=== PATIENT | male | born 1930 | race Caucasian/White ===

== ENCOUNTER 2016-08-18 13:19 | Emergency (ER) | payer OTHER ==
[~2016-08-18] VITALS: Ht 167.6 cm; Wt 96.2 kg
[~2016-08-18 13:19] MED LIST: KEFLEX500 MG PO
[2016-08-18] MEDS ORDERED: LIPITOR10 MG PO (14:37)
[2016-08-18] MEDS ORDERED: LISINOPRIL10 MG PO (14:37)
[2016-08-18] MEDS ORDERED: ASPIR 8181 MG PO (14:38)
[2016-08-18 15:08] LABS: ABSOLUTE NEUTROPHILS 3.4 thou/uL (1.4-8.2); BASOPHILS 0.3 % (0.0-2.0); EOSINOPHILS 0.7 % (0.0-3.0); HEMATOCRIT 42.7 % (42.0-52.0); HEMOGLOBIN 14.4 gm/dL (14.0-18.0); LYMPHOCYTES 24.8 % (24.0-44.0); MCHC 33.7 g/dL (28.0-37.0); MCV 94.9 fL (80.0-100.0); PLATELET COUNT 196 thou/uL (150-400); POLYS 62.2 % (36.0-66.0); RDW 14.3 % (10.5-14.5); WBC 5.5 thou/uL (4.0-11.0)
[2016-08-18 15:10] LABS: MANUAL DIFF NO
[2016-08-18 15:16] LABS: CALCIUM 9.3 mg/dL (8.5-10.1); POTASSIUM 4.2 mmol/L (3.5-5.1)
[2016-08-18] MEDS ORDERED: CLEOCIN HCL150 MG PO (16:11)
[2016-08-18] MEDS ORDERED: ULTRAM 50MG TAB50 MG PO (16:19)
[2016-08-18 17:00] VITALS: BP 117/63
== END 2016-08-18 17:00 | disposition home or self-care (01) ==
LOC: ER 13:19
PROVIDERS: Emergency Medicine
DX: L03.115 Cellulitis of right lower limb (principal); I10 Essential (primary) hypertension; M19.90 Unspecified osteoarthritis, unspecified site

== ENCOUNTER 2016-08-23 09:44 | Emergency (ER) | payer OTHER ==
[~2016-08-23] VITALS: Ht 167.6 cm; Wt 95.3 kg
[~2016-08-23 09:44] MED LIST changes: +ASPIR 8181 MG PO; +CLEOCIN HCL150 MG PO; +LIPITOR10 MG PO; +LISINOPRIL10 MG PO; +ULTRAM 50MG TAB50 MG PO
[2016-08-23 10:26] LABS: ABSOLUTE NEUTROPHILS 8.2 thou/uL (1.4-8.2); BASOPHILS 0.3 % (0.0-2.0); EOSINOPHILS 0.2 % (0.0-3.0); HEMATOCRIT 40.6 % (42.0-52.0); HEMOGLOBIN 13.6 gm/dL (14.0-18.0); LYMPHOCYTES 11.5 % (24.0-44.0); MCH 31.9 pg (26.0-34.0); MCHC 33.5 g/dL (28.0-37.0); MCV 95.5 fL (80.0-100.0); MONOCYTES 8.1 % (1.0-8.0); PLATELET COUNT 278 thou/uL (150-400); POLYS 79.9 % (36.0-66.0); RBC 4.25 mil/uL (4.50-6.00); RDW 13.8 % (10.5-14.5); WBC 10.2 thou/uL (4.0-11.0)
[2016-08-23 10:28] LABS: MANUAL DIFF NO
[2016-08-23] MEDS ORDERED: LUMIGAN2.5 M1 OP (10:32)
[2016-08-23] MEDS ORDERED: LIPITOR10 MG PO (10:32)
[2016-08-23] MEDS ORDERED: COMBIGAN EYE DR10 ML OP (10:33)
[2016-08-23] MEDS ORDERED: DICLOFENAC SODI75 MG PO (10:33)
[2016-08-23 10:34] LABS: CALCIUM 9.4 mg/dL (8.5-10.1); CREATININE 1.4 mg/dL (0.7-1.3); POTASSIUM 4.5 mmol/L (3.5-5.1)
[2016-08-23 10:39] LABS: ALBUMIN 3.2 g/dL (3.4-5.0); TOTAL BILIRUBIN 0.6 mg/dL (<0.1-1.0); TOTAL PROTEIN 7.2 g/dL (6.4-8.2)
[2016-08-23] MEDS ORDERED: NORCO 5-325 TA1 EACH PO (11:22)
[2016-08-23 11:44] VITALS: BP 114/57
== END 2016-08-23 11:45 | disposition home or self-care (01) ==
LOC: ER 09:44
PROVIDERS: Physician Assistant
DX: L03.116 Cellulitis of left lower limb (principal); I10 Essential (primary) hypertension; E78.5 Hyperlipidemia, unspecified; M19.90 Unspecified osteoarthritis, unspecified site; Z90.49 Acquired absence of other specified parts of digestive tract; Z98.890 Other specified postprocedural states; Z88.7 Allergy status to serum and vaccine

== ENCOUNTER → 2016-08-24 | Outpatient (CLI) | payer OTHER ==
[~2016-08-24] MED LIST changes: +COMBIGAN EYE DR10 ML OP; +DICLOFENAC SODI75 MG PO; +LUMIGAN2.5 M1 OP; +NORCO 5-325 TA1 EACH PO
== END ==
LOC: HYPER 07:07
DX: S91.301A Unspecified open wound, right foot, initial encounter (principal); E78.5 Hyperlipidemia, unspecified; M19.90 Unspecified osteoarthritis, unspecified site; I10 Essential (primary) hypertension; E11.69 Type 2 diabetes mellitus with other specified complication; E11.39 Type 2 diabetes mellitus with other diabetic ophthalmic complication; H40.9 Unspecified glaucoma; E11.36 Type 2 diabetes mellitus with diabetic cataract; Z87.01 Personal history of pneumonia (recurrent); Z87.891 Personal history of nicotine dependence; X58.XXXA Exposure to other specified factors, initial encounter; Y93.89 Activity, other specified; Y92.89 Other specified places as the place of occurrence of the external cause; Y99.8 Other external cause status